=== PATIENT | female | born 1995 | race Caucasian/White ===

== ENCOUNTER 2016-09-02 06:34 | Emergency (ER) | payer OTHER ==
[2016-09-02 06:46] VITALS: BMI 21.7
[2016-09-02] MEDS ORDERED: IBUPROFEN 100 MG/5 ML UNIT DOSE CUPS PO ONE (08:01)
--- NOTE | 2016-09-02 08:03 | PDOC ---
History of Present Illness - General History Source: Patient Exam Limitations: No Limitations - History of Present Illness Initial Comments: 09/02/16 08:16 The patient is a 20-year-old woman, accompanied by friend, with a past medical history of depression (suicide attempts) who presents to the emergency department via walk-in for further evaluation of persistent [id number] for the past 2 days. As per patient, her symptoms started with a mild-cough that has worsened as she nows experiences a sore throat. Patient states that she notes that she is warm to the touch and believes she has a fever. Patient does not report whether she has taken any over the counter medications for her symptoms. No rhinorrhea, nasal congestion, ear pain No shortness of breath, palpitations, headache. No abdominal pain, nausea, vomiting, diarrhea. <Taylor Ferreira - Last Filed: 09/02/16 08:17> <Matthew Clements - Last Filed: 09/03/16 09:16> - General Chief Complaint: Cold Symptoms Stated Complaint: FEVER, PAIN Past History <Taylor Ferreira - Last Filed: 09/02/16 08:17> - Past Medical History Psychiatric Problems: Yes (suicidal, depression,) - Psycho/Social/Smoking Cessation Hx Suicidal Ideation: No Smoking History: Current every day smoker Number of Cigarettes Smoked Daily: 3 Information on smoking cessation initiated: No Hx Alcohol Use: No Drug/Substance Use Hx: No <Matthew Clements - Last Filed: 09/03/16 09:16> - Past Medical History Allergies/Adverse Reactions: Allergies Allergy/AdvReac Type Severity Reaction Status Date / Time aripiprazole [From Abilify] Allergy Verified 09/02/16 06:40 Home Medications: Ambulatory Orders Clonazepam [Klonopin] 1 mg PO DAILY 09/02/16 Ibuprofen [Motrin -] 600 mg PO QID PRN #90 tablet 09/02/16 Lamotrigine [Lamictal] 250 mg PO DAILY 09/02/16 Pantoprazole Sodium [Protonix] 40 mg PO DAILY 09/02/16 Quetiapine Fumarate [Seroquel -] 25 mg PO Q6H 09/02/16 Venlafaxine HCl [Effexor -] 150 mg PO BID 09/02/16 Review of Systems - Review of Systems Able to Perform ROS?: Yes Comments:: 09/02/16 08:17 GENERAL/CONSTITUTIONAL: Yes: +Fever. +Chills. No weakness. HEAD, EYES, EARS, NOSE AND THROAT: Yes: +Sore throat. No change in vision. No ear pain or discharge. CARDIOVASCULAR: No chest pain or shortness of breath. RESPIRATORY: No cough, wheezing, or hemoptysis. GASTROINTESTINAL: No nausea, vomiting, diarrhea or constipation. GENITOURINARY: No dysuria, frequency, or change in urination. MUSCULOSKELETAL: No joint or muscle swelling or pain. No neck or back pain. SKIN: No rash NEUROLOGIC: No headache, vertigo, loss of consciousness, or change in strength/ sensation. ENDOCRINE: No increased thirst. No abnormal weight change. HEMATOLOGIC/LYMPHATIC: No anemia, easy bleeding, or history of blood clots. ALLERGIC/IMMUNOLOGIC: No hives or skin allergy. <Taylor Ferreira - Last Filed: 09/02/16 08:17> *Physical Exam - Vital Signs Last Vital Signs Temp Pulse Resp BP Pulse Ox 100.8 F H 125 H 16 101/58 100 09/02/16 08:10 09/02/16 08:10 09/02/16 08:10 09/02/16 08:10 09/02/16 08:10 - Physical Exam Comments: 09/02/16 08:17 GENERAL: Awake, alert, and fully oriented, in no acute distress HEAD: No signs of trauma EYES: PERRLA, EOMI, sclera anicteric, conjunctiva clear ENT: Auricles normal inspection, hearing grossly normal, nares patent, oropharynx is erythematous with exudates. Moist mucosa NECK: Normal ROM, supple, no anterior cervical lymphadenopathy, JVD, or masses LUNGS: Breath sounds equal, clear to auscultation bilaterally. No wheezes, and no crackles HEART: Regular rate and rhythm, normal S1 and S2, no murmurs, rubs or gallops ABDOMEN: Soft, nontender, normoactive bowel sounds. No guarding, no rebound. No masses EXTREMITIES: Normal range of motion, no edema. No clubbing or cyanosis. No cords, erythema, or tenderness NEUROLOGICAL: Cranial nerves II through XII grossly intact. Normal speech. <Taylor Ferreira - Last Filed: 09/02/16 08:17> - Vital Signs Last Vital Signs Temp Pulse Resp BP Pulse Ox 98.4 F 131 H 14 116/61 100 09/02/16 06:43 09/02/16 06:43 09/02/16 06:43 09/02/16 06:43 09/02/16 06:43 <Matthew Clements - Last Filed: 09/03/16 09:16> ED Treatment Course - Medications Given in the ED: ED Medications Discontinued Medications Generic Name Dose Route Start Last Admin Trade Name Freq PRN Reason Stop Dose Admin Ibuprofen 600 mg 09/02/16 08:01 09/02/16 08:06 Motrin Oral Suspension - PO 09/02/16 08:02 600 mg NOW ONE Administration <Taylor Ferreira - Last Filed: 09/02/16 08:17> - LABORATORY CBC & Chemistry Diagram: 09/02/16 14:00 09/02/16 14:00 <Matthew Clements - Last Filed: 09/03/16 09:16> *DC/Admit/Observation/Transfer - Attestations Scribe Attestion: 09/02/16 08:17 Documentation prepared by Taylor Ferreira, acting as ophthalmic medical assistant for Matthew Clements MD. <Taylor Ferreira - Last Filed: 09/02/16 08:17> - Discharge Dispostion Admit: No <Matthew Clements - Last Filed: 09/03/16 09:16> Diagnosis at time of Disposition: Fever, Viral infection - Discharge Dispostion Disposition: HOME Condition at time of disposition: Improved - Prescriptions Prescriptions: Ibuprofen [Motrin -] 600 mg PO QID PRN #90 tablet PRN Reason: Fever - Referrals Referrals: Jose Reyes [Primary Care Provider] - - Patient Instructions Printed Discharge Instructions: DI for Viral Upper Respiratory Infection -- Adult Additional Instructions: the rapid strep is negative the influenzae test is negative no pneumonia no pulmonary embolism
[2016-09-02] MEDS ORDERED: IBUPROFEN 100 MG/5 ML UNIT DOSE CUPS ONE ×2 (08:04→13:51)
[2016-09-02] MEDS ORDERED: LIDOCAINE VISCOUS 2% ORAL/TOP 20 ML UNIT-DOSE CUP MM ONE (11:37)
[2016-09-02] MEDS ORDERED: ACETAMINOPHEN 325 MG TABLET (FP) PO ONE (12:08)
[2016-09-02] MEDS ORDERED: ACETAMINOPHEN 325 MG TABLET (FP) ONE (12:08)
[2016-09-02] MEDS ORDERED: IBUPROFEN 600 MG TABLET (FP) PO ONE (13:46)
[2016-09-02] MEDS ORDERED: SODIUM CHLORIDE 1,000 ML IV STA (13:46)
[2016-09-02 14:13] LABS: BASOPHIL 0.3 % (0-2.0); MCH 22.7 pg (25.7-33.7); MCHC 31.9 g/dl (32.0-36.0); MEAN CELL VOLUME 71.1 fl (80-96); MEAN PLT VOLUME 7.3 fl (7.5-11.1); NEUTROPHILS 77.5 % (42.8-82.8); PLATELET COUNT 326 K/MM3 (134-434); RDW 16.5 % (11.6-15.6); WHITE BLOOD COUNT 11.5 K/mm3 (4.0-10.0)
[2016-09-02 14:35] LABS: ALBUMIN 3.7 g/dl (3.4-5.0); ANION GAP 13 (8-16); CALCIUM 8.2 mg/dL (8.5-10.1); CO2 24 mmol/L (21-32); CREATININE 0.8 mg/dL (0.55-1.02); GLUCOSE,RANDOM 85 mg/dL (74-106); SGOT/AST 22 U/L (15-37); SGPT/ALT 15 U/L (12-78)
[2016-09-02 14:37] LABS: ALK PHOS 123 U/L (45-117); BILIRUBIN,TOTAL 0.4 mg/dL (0.2-1.0); TOT PROT 7.2 g/dl (6.4-8.2)
[2016-09-02 17:29] VITALS: BP 111/68; PULSE 114; TEMP 97.5
== END 2016-09-02 17:29 | disposition home or self-care (01) ==
LOC: JER 06:34
PROC: 3E0337Z Introduction of Electrolytic and Water Balance Substance into Peripheral Vein, Percutaneous Approach (ICD-10-PCS; principal; 2016-09-02)
DX: J06.9 Acute upper respiratory infection, unspecified (principal); B97.89 Other viral agents as the cause of diseases classified elsewhere; F32.9 Major depressive disorder, single episode, unspecified; F17.210 Nicotine dependence, cigarettes, uncomplicated
CPT/HCPCS: 36415; 71020-TC; 71275-TC; 80053; 84703; 85025; 85379; 86308; 87070; 87430; 87804; 96360; 99283-25